=== PATIENT | female | born 1975 | race Caucasian/White ===

== ENCOUNTER 2019-03-12 13:41 | Emergency (ER) | payer SELFPAY ==
[~2019-03-12] VITALS: Ht 157.5 cm; Wt 63.5 kg
[2019-03-12 14:07] VITALS: BP 97/67
[2019-03-12] MEDS ORDERED: TETRACAINE HCL 0.5% OPTH(EYE) SOLN 4ML EACHEYE ONE (14:30)
[2019-03-12] MEDS ORDERED: FLUORESCEIN SOD 1 MG TEST STRIP OP ONE (14:30)
== END 2019-03-12 14:58 | disposition home or self-care (01) ==
LOC: ER 13:41
DX: S05.02XA Injury of conjunctiva and corneal abrasion without foreign body, left eye, initial encounter (principal); X58.XXXA Exposure to other specified factors, initial encounter; Y93.89 Activity, other specified; Y99.8 Other external cause status; Y92.89 Other specified places as the place of occurrence of the external cause